=== PATIENT | male | born 1965 | race Caucasian/White ===

== ENCOUNTER → 2018-03-10 | Outpatient (REF) | payer OTHER ==
[2018-03-10 15:29] LABS: INFLUENZA A AMPLIFICATION NEGATIVE (NEGATIVE); INFLUENZA B AMPLIFICATION NEGATIVE (NEGATIVE)
== END ==
LOC: M LAB REF 14:15
DX: Z11.59 Encounter for screening for other viral diseases (principal)

== ENCOUNTER 2019-03-11 07:20 | Day surgery (SDC) | payer BC ==
[~2019-03-11] VITALS: Ht 177.8 cm; Wt 88.9 kg
[~2019-03-11 07:20] MED LIST: LOSA100T50 PO; NS 1,000 ML IV ONE
[2019-03-11] MEDS ORDERED: PROPOFOL 200 MG/20 ML VIAL As Ordered ONE (07:50)
[2019-03-11] MEDS ORDERED: LIDOCAINE 2% INJ 100 MG/5 ML SDV (FOR ANES.) As Ordered ONE (07:50)
--- NOTE | 2019-03-11 09:19 | ROOR ---
Patient Name: Steven Williamson Procedure Date: 03/11/2019 8:51 AM Date of : 1965 Age: 53 Room: [facility] Gender: Male Note Status: Finalized Procedure: Colonoscopy Indications: Screening for colorectal malignant neoplasm Providers: DO Lynsey Leger MD: PRESLEY DOZIER Requesting Provider: Medicines: Propofol per Anesthesia Complications: No immediate complications. Procedure: Pre-Anesthesia Assessment: - Prior to the procedure, a History and Physical was performed, and patient medications and allergies were reviewed. The patient is competent. The risks and benefits of the procedure and the sedation options and risks were discussed with the patient. All questions were answered and informed consent was obtained. Patient identification and proposed procedure were verified by the physician, the nurse, the anesthesiologist and the train control technician in the endoscopy suite. Mental Status Examination: alert and oriented. Airway Examination: normal oropharyngeal airway and neck mobility. Respiratory Examination: clear to auscultation. CV Examination: normal. Prophylactic Antibiotics: The patient does not require prophylactic antibiotics. Prior Anticoagulants: The patient has taken no previous anticoagulant or antiplatelet agents. ASA Grade Assessment: II - A patient with mild systemic disease. After reviewing the risks and benefits, the patient was deemed in satisfactory condition to undergo the procedure. The anesthesia plan was to use monitored anesthesia care (MAC). Immediately prior to administration of medications, the patient was re-assessed for adequacy to receive sedatives. The heart rate, respiratory rate, oxygen saturations, blood pressure, adequacy of pulmonary ventilation, and response to care were monitored throughout the procedure. The physical status of the patient was re-assessed after the procedure. The Colonoscope was introduced through the anus and advanced to the cecum, identified by appendiceal orifice and ileocecal valve. The colonoscopy was performed without difficulty. The patient tolerated the procedure well. Findings: A 10 mm polyp was found in the recto-sigmoid colon. The polyp was semi-pedunculated. The polyp was removed with a hot snare. Resection and retrieval were complete. Estimated blood loss: none. The exam was otherwise without abnormality on direct and retroflexion views. Impression: - One 10 mm polyp at the recto-sigmoid colon, removed with a hot snare. Resected and retrieved. - The examination was otherwise normal on direct and retroflexion views. Recommendation: - Patient has a contact number available for emergencies. The signs and symptoms of potential delayed complications were discussed with the patient. Return to normal activities tomorrow. Written discharge instructions were provided to the patient. Rocky Braun DO 03/11/2019 9:19:24 AM Electronically signed by Rocky Braun DO Number of Addenda: 0 Note Initiated On: 03/11/2019 8:51 AM Estimated Blood Loss: Estimated blood loss: none.
[2019-03-11 09:40] VITALS: BP 128/92
== END 2019-03-11 09:51 | disposition home or self-care (01) ==
LOC: M OPP 07:20
PROVIDERS: ATTEND Surgery
DX: Z12.11 Encounter for screening for malignant neoplasm of colon (principal); D12.2 Benign neoplasm of ascending colon; I10 Essential (primary) hypertension; Z79.899 Other long term (current) drug therapy

== ENCOUNTER 2022-12-21 07:28 | Day surgery (SDC) | payer BC ==
[~2022-12-21] VITALS: Ht 185.4 cm; Wt 93.7 kg
[~2022-12-21 07:28] MED LIST changes: +LOSA100T46 PO; -LOSA100T50 PO
[2022-12-21] MEDS ORDERED: propofoL 500 MG/50 ML VIAL As Ordered ONE (09:52)
[2022-12-21] MEDS ORDERED: LIDOCAINE 2% 100MG/5ML SDV (FOR ANES.) As Ordered ONE (09:52)
[2022-12-21 10:25] VITALS: BP 133/88; O2SAT 95
== END 2022-12-21 10:27 | disposition home or self-care (01) ==
LOC: M OPP 07:28
PROVIDERS: ATTEND Surgery
DX: Z12.11 Encounter for screening for malignant neoplasm of colon (principal); Z86.010 Personal history of colon polyps; D12.5 Benign neoplasm of sigmoid colon; K64.0 First degree hemorrhoids; K57.30 Diverticulosis of large intestine without perforation or abscess without bleeding; Z79.899 Other long term (current) drug therapy

== ENCOUNTER → 2023-01-01 | Outpatient (CLI) | payer BC ==
[~2023-01-01] MED LIST changes: -NS 1,000 ML IV ONE
[2023-01-01 12:14] LABS: HEMATOCRIT 46.9 % (42.0-52.0); HEMOGLOBIN 15.6 g/dl (13.5-17.5); MEAN CORPUSCULAR HEMOGLOBIN 31.3 pg (27.0-33.0); MEAN CORPUSCULAR HGB CONC 33.3 g/dl (32.0-36.5); MEAN CORPUSCULAR VOLUME 94.2 fl (80.0-96.0); PLATELET COUNT, AUTOMATED 236 10^3/uL (150-450); RED BLOOD COUNT 4.98 10^6/uL (4.30-6.10); WHITE BLOOD COUNT 6.3 10^3/uL (4.0-10.0)
[2023-01-01 12:21] LABS: APPEARANCE, URINE CLEAR (CLEAR); BACTERIA, URINE AUTO NEGATIVE (NEGATIVE); BILIRUBIN, URINE AUTO NEGATIVE (NEGATIVE); BLOOD, URINE BLOOD 1+ (NEGATIVE); COLOR, URINE YELLOW (YELLOW); GLUCOSE, URINE (UA) AUTO NEGATIVE (NEGATIVE); KETONE, URINE AUTO NEGATIVE (NEGATIVE); LEUKOCYTE ESTERASE, URINE AUTO NEGATIVE (NEGATIVE); MUCUS, URINE SMALL (NEGATIVE); NITRITE, URINE AUTO NEGATIVE (NEGATIVE); PROTEIN, URINE AUTO NEGATIVE (NEGATIVE); RBC, URINE AUTO 0 /HPF (0-3); SPECIFIC GRAVITY URINE AUTO 1.019 (1.002-1.035); SQUAMOUS EPITHELIAL CELL UR AU 0 /HPF (0-6); UROBILINOGEN, URINE AUTO 0.2 mg/dL (0.0-2.0); WBC, URINE AUTO 0 /HPF (0-3)
[2023-01-01 12:49] LABS: PROSTATIC SPECIFIC AG MONITOR 0.35 NG/ML (< 4.00)
[2023-01-01 12:52] LABS: ALBUMIN 4.1 G/DL (3.2-5.2); ALKALINE PHOSPHATASE 62 U/L (46-116); ALT/SGPT 41 U/L (7.0-40); AST/SGOT 21 U/L (<34); BILIRUBIN,TOTAL 0.6 MG/DL (0.3-1.2); BLOOD UREA NITROGEN 17 MG/DL (9-23); CALCIUM LEVEL 9.5 MG/DL (8.5-10.1); CARBON DIOXIDE LEVEL 30 MMOL/L (20-31); CHLORIDE LEVEL 106 MMOL/L (98-107); CHOLESTEROL LEVEL 157 MG/DL (<200); GLOMERULAR FILTRATION RATE > 60.0 (>56); GLUCOSE, FASTING 100 MG/DL (60-100); HDL CHOLESTEROL 46.1 MG/DL (>40); LDL CHOLESTEROL 88.5 MG/DL (<100); NON-HDL-C 110.9 MG/DL; SODIUM LEVEL 143 MMOL/L (136-145); TOTAL PROTEIN 6.8 G/DL (5.7-8.2); TRIGLYCERIDES LEVEL 112 MG/DL (<150)
[2023-01-01 12:53] LABS: THYROID STIMULATING HORMONE 2.263 uIU/ML (0.55-4.78)
== END ==
LOC: M WUC 09:01
PROVIDERS: ATTEND Physician Assistant
DX: I10 Essential (primary) hypertension (principal); R35.1 Nocturia

== ENCOUNTER → 2023-03-29 | Outpatient (REF) | payer BC ==
[2023-03-29 11:24] LABS: APPEARANCE, URINE CLEAR (CLEAR); BACTERIA, URINE AUTO NEGATIVE (NEGATIVE); BILIRUBIN, URINE AUTO NEGATIVE (NEGATIVE); BLOOD, URINE BLOOD NEGATIVE (NEGATIVE); COLOR, URINE STRAW (YELLOW); GLUCOSE, URINE (UA) AUTO NEGATIVE (NEGATIVE); KETONE, URINE AUTO NEGATIVE (NEGATIVE); LEUKOCYTE ESTERASE, URINE AUTO NEGATIVE (NEGATIVE); MUCUS, URINE SMALL (NEGATIVE); NITRITE, URINE AUTO NEGATIVE (NEGATIVE); PROTEIN, URINE AUTO NEGATIVE (NEGATIVE); RBC, URINE AUTO 0 /HPF (0-3); SPECIFIC GRAVITY URINE AUTO 1.008 (1.002-1.035); SQUAMOUS EPITHELIAL CELL UR AU 0 /HPF (0-6); UROBILINOGEN, URINE AUTO 0.2 mg/dL (0.0-2.0); WBC, URINE AUTO 0 /HPF (0-3)
== END ==
LOC: M SMT 09:36
PROVIDERS: ATTEND Physician Assistant
DX: R31.21 Asymptomatic microscopic hematuria (principal); R82.89 Other abnormal findings on cytological and histological examination of urine

== ENCOUNTER → 2024-09-25 | Outpatient (REF) | payer BC ==
[2024-09-25 13:52] LABS: BILIRUBIN,TOTAL 0.4 MG/DL (0.3-1.2); CALCIUM LEVEL 9.5 MG/DL (8.5-10.1); CHOLESTEROL RISK RATIO 3.56 (<5); CREATININE FOR GFR 0.98 MG/DL (0.70-1.30); GLOMERULAR FILTRATION RATE 88.8 (>56); HDL CHOLESTEROL 44.1 MG/DL (>40); HEMATOCRIT 46.6 % (42.0-52.0); HEMOGLOBIN 15.3 g/dl (13.5-17.5); LDL CHOLESTEROL 93.1 MG/DL (<100); MEAN CORPUSCULAR HEMOGLOBIN 31.3 pg (27.0-33.0); MEAN CORPUSCULAR HGB CONC 32.8 g/dl (32.0-36.5); MEAN CORPUSCULAR VOLUME 95.3 fl (80.0-96.0); NON-HDL-C 112.9 MG/DL; PLATELET COUNT, AUTOMATED 222 10^3/uL (150-450); RED BLOOD COUNT 4.89 10^6/uL (4.30-6.10); TOTAL PROTEIN 6.5 G/DL (5.7-8.2)
== END ==
LOC: M LABDRWAD 12:59
PROVIDERS: ATTEND Physician Assistant
DX: I10 Essential (primary) hypertension (principal); E66.9 Obesity, unspecified

== ENCOUNTER → 2025-02-15 | Outpatient (REF) | payer BC ==
[2025-02-15 14:09] LABS: IRON (FE) 86.0 UG/DL (65-175)
[2025-02-15 14:10] LABS: PERCENT SATURATION 28.0 % (19.7-50.0)
== END ==
LOC: M LABDRWAD 12:48
PROVIDERS: ATTEND Physician Assistant
DX: E83.110 Hereditary hemochromatosis (principal)